=== PATIENT | male | born 1950 | race Caucasian/White ===

== ENCOUNTER 2016-07-31 16:27 | Outpatient (RCR) | payer MEDICARE, OTHER ==
[~2016-07-31 16:27] MED LIST: BISO1TAB3 PO; METF850T2 PO; PRAV80TA2 PO
== END 2016-10-29 | disposition home or self-care (01) ==
LOC: DT 16:27
PROVIDERS: ATTEND Family Medicine
DX: E11.65 Type 2 diabetes mellitus with hyperglycemia (principal)
CPT/HCPCS: 97803